=== PATIENT | male | born 1985 | race Caucasian/White ===

== ENCOUNTER 2017-08-26 23:17 | Emergency (ER) | payer BC, OTHER ==
[~2017-08-26] VITALS: Ht 198.1 cm; Wt 185.0 kg
[~2017-08-26 23:17] MED LIST: AMLO10TA2 PO; B12-1CHW CHEW; GABA600T PO; LISI-515 PO; LORA-361 PO; MAXZTAB PO; MECL-62 PO; MELO15TA20 PO; SERT-129 PO; ZOFR4TAB PO; ZOLO100T PO
[2017-08-26 23:20] VITALS: BP 183/101; PULSE 103; RESP 16; TEMP 97.6; O2SAT 96
[2017-08-27 01:08] VITALS: BP 139/73; PULSE 90; RESP 20; O2SAT 96
[2017-08-27] MEDS ORDERED: ONDANSETRON HCL 4 MG/2 ML VIAL IV PUSH ONE (02:00)
--- NOTE | 2017-08-27 02:26 | RADRPT ---
EXAM DATE/TIME: 08/27/2017 01:48 [facility] COMPARISON: CT BRAIN W/O CONTRAST, October 03, 2016, 12:43. INDICATIONS : Cephalgia. RADIATION DOSE: 56.35 CTDIvol (mGy) MEDICAL HISTORY : Hypertension. SURGICAL HISTORY : None. ENCOUNTER: Initial ACUITY: 1 day PAIN SCALE: 10/10 LOCATION: cranial TECHNIQUE: Multiple contiguous axial images were obtained of the head. Using automated exposure control and adj ustment of the mA and/or kV according to patient size, radiation dose was kept as low as reasonably a chievable to obtain optimal diagnostic quality images. DICOM format image data is available electro nically for review and comparison. FINDINGS: CEREBRUM: The ventricles are normal for age. No evidence of midline shift, mass lesion, hemorrhage or acute in farction. No extra-axial fluid collections are seen. POSTERIOR FOSSA: The cerebellum and brainstem are intact. The 4th ventricle is midline. The cerebellopontine angle i s unremarkable. EXTRACRANIAL: The visualized portion of the orbits is intact. SKULL: The calvaria is intact. No evidence of skull fracture. CONCLUSION: Normal examination. Sukhjinder Bishop MD on August 27, 2017 at 2:23 Board Certified Radiologist. This report was verified electronically.
[2017-08-27] MEDS ORDERED: KETOROLAC TROMETHAMINE 30 MG/ML (IVP) VIAL IV PUSH ONE (02:45)
[2017-08-27] MEDS ORDERED: ZOFR4TAB3 SL (03:04)
--- NOTE | 2017-08-27 03:09 | PD ---
HPI Chief Complaint: Headache Time Seen by Provider: 02:39 Travel History International Travel<30 days: No Contact w/Intl Traveler<30days: No Traveled to known affect area: No History of Present Illness HPI 31-year-old male with history of hypertension presents to the emergency department for complaint of headache is not responsive to Aleve or ibuprofen. Last dose of medication was yesterday afternoon. Patient reports that he used a telemedicine physician who recommended that he come to the emergency room for evaluation. Patient has had his blood pressure medication for the day but according to the patient this evening his blood pressure is very elevated so presents now for further evaluation. Patient reports headache since awakening on Thursday morning. No fever no chills no nausea no vomiting no visual disturbance no loss of vision or double vision no neck pain or stiffness no chest pain no palpitations no shortness of breath no abdominal pain no referred neck jaw back shoulder or mid scapular were extremity pain. No confusion no balance disturbance no upper extremity or lower extremity numbness tingling or weakness. Patient rates his headache pain 9-10 over 10 in intensity. Headache not sudden onset not thunderclap but persistent symptoms decided to come to the emergency room as the telemedicine DrAve encouraged him to do so. PFSH Past Medical History Narrative Medical Hypertension anxiety depression right bundle branch block kidney stone renal stent no tobacco use; nursing notes reviewed Depression: Yes Heart Rhythm Problems: Yes (RBB) Cardiovascular Problems: Yes High Cholesterol: No Congestive Heart Failure: No Diabetes: No Diminished Hearing: No Hypertension: Yes Kidney Stones: Yes Tetanus Vaccination: < 5 Years Influenza Vaccination: Yes Past Surgical History Coronary Artery Bypass Graft: No Genitourinary Surgery: Yes (kidney stent placement and removal) Social History Alcohol Use: Yes (occ) Tobacco Use: No Substance Use: No Allergies-Medications (Allergen,Severity, Reaction): Coded Allergies: diatrizoate meglumine (Unverified Allergy, Intermediate, Shortness of Breath, 06/10/17) gadobenic acid (Unverified Allergy, Intermediate, Shortness of Breath, ) gadodiamide (Unverified Allergy, Intermediate, Shortness of Breath, ) gadoteridol (Unverified Allergy, Intermediate, Shortness of Breath, ) iodixanol (Unverified Allergy, Intermediate, Shortness of Breath, 06/10/17) iohexol (Unverified Allergy, Intermediate, Shortness of Breath, 06/10/17) oxycodone (Unverified Allergy, Intermediate, Hives, 06/10/17) Reported Meds & Prescriptions Reported Meds & Active Scripts Active Zofran Odt (Ondansetron Odt) 4 Mg Tab 4 Mg SL Q6HR PRN Meclizine (Meclizine HCl) 25 Mg Tab 25 Mg PO TID PRN Reported Amlodipine (Amlodipine Besylate) 10 Mg Tab 10 Mg PO DAILY Zoloft (Sertraline HCl) 100 Mg Tab 100 Mg PO DAILY Meloxicam 15 Mg Tab 15 Mg PO DAILY Gabapentin 600 Mg Tab 600 Mg PO DAILY Lisinopril 20 Mg Tab 20 Mg PO DAILY Review of Systems Except as stated in HPI: all other systems reviewed are Neg Physical Exam Narrative GENERAL: Well-developed well-nourished male in no acute distress no respiratory distress SKIN: Warm and dry. HEAD: Atraumatic. Normocephalic. EYES: Pupils equal and round. No scleral icterus. No injection or drainage. ENT: No nasal bleeding or discharge. Mucous membranes pink and moist. NECK: Trachea midline. No JVD. CARDIOVASCULAR: Regular rate and rhythm. RESPIRATORY: No accessory muscle use. Clear to auscultation. Breath sounds equal bilaterally. GASTROINTESTINAL: Abdomen soft, non-tender, nondistended. Hepatic and splenic margins not palpable. MUSCULOSKELETAL: Extremities without clubbing, cyanosis, or edema. No obvious deformities. NEUROLOGICAL: Awake and alert. No obvious cranial nerve deficits. GCS 15. Motor grossly within normal limits. Five out of 5 muscle strength in the arms and legs. No pronator drift. No limb ataxia Normal speech. PSYCHIATRIC: Appropriate mood and affect; insight and judgment normal. Data Data Last Documented VS Vital Signs Date Time Temp Pulse Resp B/P (MAP) Pulse Ox O2 Delivery O2 Flow Rate FiO2 08/27/17 01:08 90 20 139/73 (95) 96 Room Air 08/26/17 23:[address] Brain W/O Iv Contrast(Rout) (08/27/17 ) Ondansetron Inj (Zofran Inj) (08/27/17 02:00) Ketorolac Inj (Toradol Inj) (08/27/17 02:45) Ed Discharge Order (08/27/17 03:02) MDM Medical Decision Making Medical Screen Exam Complete: Yes Emergency Medical Condition: Yes Medical Record Reviewed: Yes Interpretation(s) CT brain w/o: CONCLUSION: Normal examination. Sukhjinder Bishop MD on August 27, 2017 at 2:23 Board Certified Radiologist. This report was verified electronically. Differential Diagnosis Headache uncontrolled hypertension ICH Narrative Course Blood pressure is improved from comparison triage blood pressure IV access obtained patient administered Zofran CT brain noncontrast ordered CT brain noncontrast negative for acute process no bleed patient administered Toradol 30 mg IV At 3 AM patient is clinically improved is sleeping upon awakening states headache is markedly improved and desires being discharged home patient is stable for outpatient management Diagnosis Primary Impression: Hypertension Qualified Codes: I10 - Essential (primary) hypertension Additional Impression: Cephalgia Qualified Codes: G44.209 - Tension-type headache, unspecified, not intractable Referrals: Primary Care Physician call for appointment Patient Instructions: General Instructions Additional Instructions: Increase fluid hydration Avoid or decrease salt intake Take blood pressure medication as prescribed Follow-up with her primary care provider May take Zofran as prescribed as needed for nausea and/or vomiting May take ibuprofen headache pain as needed follow package directions Med/Other Pt SpecificInfo: Prescription(s) given Scripts Ondansetron Odt (Zofran Odt) 4 Mg Tab 4 MG SL Q6HR Y for Nausea/Vomiting, #10 TAB 0 Refills Prov: Camille Gamino MD 08/27/17 Disposition: 01 DISCHARGE HOME Condition: Stable Camille Gamino MD Aug 27, 2017 03:09
== END 2017-08-27 03:23 | disposition home or self-care (01) ==
LOC: NEPC 23:17
DX: R51 Headache (principal); I10 Essential (primary) hypertension; I45.10 Unspecified right bundle-branch block; F32.9 Major depressive disorder, single episode, unspecified; Z87.442 Personal history of urinary calculi; Z79.899 Other long term (current) drug therapy; Z88.8 Allergy status to other drugs, medicaments and biological substances
CPT/HCPCS: 70450; 96374; 96375; 99285; J1885; J2405

== ENCOUNTER 2018-02-04 13:00 | Emergency (ER) | payer BC ==
[~2018-02-04] VITALS: Ht 198.1 cm; Wt 150.0 kg
[~2018-02-04 13:00] MED LIST changes: -B12-1CHW CHEW; -LORA-361 PO; -MAXZTAB PO; -SERT-129 PO; -ZOFR4TAB PO; +ZOFR4TAB3 SL
[2018-02-04 13:47] VITALS: BP 120/66; PULSE 89; RESP 20; TEMP 98.1; O2SAT 99
== END 2018-02-04 14:15 | disposition left against medical advice (07) ==
LOC: NED 13:00
DX: R42 Dizziness and giddiness (principal)
CPT/HCPCS: 99281